=== PATIENT | female | born 1955 | race African-American/Black ===

== ENCOUNTER 2018-06-03 08:26 | Outpatient (CLI) | payer OTHER ==
--- NOTE | 2018-06-08 14:59 | MMO ---
MAMMOGRAM DIGITAL SCREENING BILATERAL: DATE: 06-08-18 HISTORY: 62-year-old female for routine bilateral screening mammogram. COMPARISON: 06-03-17, 03-05-16, 03-23-14 TECHNIQUE: Digital mammographic views. Computer-aided detection (CAD) utilized. FINDINGS: There are scattered areas of fibroglandular density. There is no evidence of suspicious mass, suspicious calcifications, or architectural distortion. The re is no significant interval change since the prior mammogram. IMPRESSION: 1) BIRADS 1- Negative. 2) Recommendation: routine bilateral annual screening mammogram (unless the patient develops suspicio us clinical findings that would warrant earlier imaging follow up). randy POS: MICHAEL
== END 2018-06-03 08:27 | disposition home or self-care (01) ==
LOC: SCSMAMMO 08:26
DX: Z12.31 Encounter for screening mammogram for malignant neoplasm of breast (principal)
CPT/HCPCS: 77067

== ENCOUNTER 2020-04-13 19:30 | Emergency (ER) | payer BC ==
[2020-04-13] MEDS ORDERED: cefTRIAXone\\ROCEPHIN 2 GM VIAL ONE (20:15)
[2020-04-13 20:16] LABS: Bacteria/HPF 1+ HPF (None Seen); Bilirubin Negative (Negative); Blood, Urine 2+ (Negative); Glucose, Urine (Dipstick) Greater than 1000 mg/dL (Negative); Leukocyte 500 Leu/uL (Negative); Nitrite Negative (Negative); Protein, Urine (Dipstick) 200 mg/dL (Neg-Trace); RBC/HPF 21-50 HPF (0-3); Squamous Epithelial None Seen HPF (0-3); Urobilinogen Normal mg/dL (Less than 2); WBC/HPF 0-3 HPF (0-3)
[2020-04-13] MEDS ORDERED: cefTRIAXone\\ROCEPHIN 1 GM VIAL ONE (20:16)
[2020-04-13 20:17] LABS: Clarity Hazy (Clear)
[2020-04-13 20:23] LABS: #Basophils 0.1 thou/uL (0.0-0.2); #Eosinphils 0.1 thou/uL (0.0-0.7); #Lymphocytes 2.3 thou/uL (1.20-3.40); #Monocytes 0.5 thou/uL (0.11-0.59); #Neutrophils 6.5 thou/uL (1.40-6.50); %Basophils 0.6 % (0.0-1.0); %Eosinophils 1.5 % (0.0-10.0); %Neutrophils 68.9 % (42.0-75.0); Hemoglobin 13.6 g/dL (12.0-16.0); Mean Corpuscular HGB CONC 32.3 g/dL (32.0-36.0); Mean Corpuscular Hemoglobin 27.9 pg (27.0-31.0); Mean Corpuscular Volume 86.3 fL (78.0-98.0); Mean Platelet Volume 9.1 fL (7.4-10.4); Platelet Count 193 thou/uL (130-400); RBC Distribution Width 13.2 % (11.5-14.5); Red Blood Cell (RBC) Count 4.88 mill/uL (4.20-5.40); White Blood Cell (WBC) Count 9.5 thou/uL (4.8-10.8)
[2020-04-13 20:45] LABS: ALT (SGPT) 77 U/L (8-55); AST (SGOT) 68 U/L (5-34); Albumin 4.9 g/dL (3.4-4.8); Alkaline Phosphatase 148 U/L (40-110); Anion Gap 16 mmol/L (10-20); BUN (Urea Nitrogen) 15 mg/dL (9.8-20.1); Bilirubin, Total 0.3 mg/dL (0.2-1.2); Calc. Creatinine Clearance 0 mL/min (70-130); Calcium 9.6 mg/dL (7.8-10.44); Carbon Dioxide 25 mmol/L (23-31); Chloride 99 mmol/L (98-107); Estimated GFR-MDRD 46; Globulin 3.4 g/dL (2.4-3.5); Glucose 148 mg/dL (80-115); Potassium 3.4 mmol/L (3.5-5.1); Protein, Total 8.3 g/dL (6.0-8.3); Sodium 137 mmol/L (136-145)
--- NOTE | 2020-04-13 21:20 | CT ---
CT ABDOMEN AND PELVIS: 04/13/20 PROVIDED CLINICAL HISTORY: Hematuria. FINDINGS: no comparisons. There is a sub 6 mm noncalcified nodule involving the left lower lobe. There is a mixed density mass including fat density at the superior pole of the left kidney measuring about 3.2 cm compatible with angiomyolipoma. The solid abdominal organs are suboptimally evaluated in the absence of IV contrast material but demo nstrate an otherwise unremarkable unenhanced CT appearance. Changes of prior cholecystectomy. There is conspicuous urinary bladder wall thickening with surrounding fat stranding. There is no evid ence for bowel obstruction. No additional fat stranding, free fluid or free air apparent. There is no evidence for appendicitis. Sigmoid colonic diverticula are demonstrated. The osseous structures demonstrate no concerning lytic or blastic lesions. IMPRESSION: 1. Urinary bladder wall thickening with surrounding fat stranding, compatible with cystitis. 2. 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 Given the size, nonemergent urology consultation is recomme nded. POS: JARED
== END 2020-04-13 21:37 | disposition home or self-care (01) ==
LOC: ERS 19:30
DX: N30.01 Acute cystitis with hematuria (principal); D17.9 Benign lipomatous neoplasm, unspecified; E11.9 Type 2 diabetes mellitus without complications; I10 Essential (primary) hypertension; E78.00 Pure hypercholesterolemia, unspecified; Z79.899 Other long term (current) drug therapy
CPT/HCPCS: 74176; 80053; 81003; 81015; 85025; 96365; J0696

== ENCOUNTER 2020-11-07 08:57 | Outpatient (CLI) | payer MEDICARE, OTHER ==
--- NOTE | 2020-11-07 12:30 | MMO ---
Bilateral MAMMO Bilat Screen [facility]. CLINICAL HISTORY: Patient is 64 years old and is seen for screening. The patient has no family history of breast cancer. The patient has no personal history of cancer. VIEWS: The views performed were: bilateral craniocaudal with tomosynthesis and bilateral mediolateral oblique with tomosynthesis. FILMS COMPARED: The present examination has been compared to a prior imaging study performed at [facility] on 06/03/2018. This study has been interpreted with the assistance of computer-aided detection. MAMMOGRAM FINDINGS: The breasts are heterogeneously dense, which could obscure a lesion on mammography. There are no suspicious masses, suspicious calcifications, or new areas of architectural distortion. IMPRESSION: THERE IS NO MAMMOGRAPHIC EVIDENCE OF MALIGNANCY. A ROUTINE FOLLOW-UP MAMMOGRAM IN 1 YEAR IS RECOMMENDED. THE RESULTS OF THIS EXAM WERE SENT TO THE PATIENT. ACR BI-RADS Category 1 - Negative MAMMOGRAPHY NOTE: 1. A negative mammogram report should not delay a biopsy if a dominant of clinically suspicious mass is present. 2. Approximately 10% to 15% of breast cancers are not detected by mammography. 3. Adenosis and dense breasts may obscure an underlying neoplasm. Reported by: GIOVANNI ZHOU MD Electonically Signed: [id number]
== END 2020-11-07 08:58 | disposition home or self-care (01) ==
LOC: BICMAMMO 08:57
PROVIDERS: ATTEND Family Medicine
DX: Z12.31 Encounter for screening mammogram for malignant neoplasm of breast (principal)
CPT/HCPCS: 77063; 77067

== ENCOUNTER 2021-11-24 12:14 | Outpatient (CLI) | payer MEDICARE | END 2021-11-24 12:15 | disposition home or self-care (01) | LOC: BICMAMMO 12:14 | PROVIDERS: ATTEND Family Medicine | DX: Z12.31 Encounter for screening mammogram for malignant neoplasm of breast (principal) | CPT/HCPCS: 77063; 77067 ==

== ENCOUNTER 2023-02-15 10:31 | Outpatient (CLI) | payer MEDICARE | END 2023-02-15 10:32 | disposition home or self-care (01) | LOC: BICMAMMO 10:31 | PROVIDERS: ATTEND Family Medicine | DX: Z12.31 Encounter for screening mammogram for malignant neoplasm of breast (principal); Z13.820 Encounter for screening for osteoporosis; M85.80 Other specified disorders of bone density and structure, unspecified site | CPT/HCPCS: 77063; 77067; 77080 ==

== ENCOUNTER 2024-05-09 12:23 | Outpatient (CLI) | payer MEDICARE, OTHER | END 2024-05-09 12:24 | disposition home or self-care (01) | LOC: BICMAMMO 12:23 | PROVIDERS: ATTEND Family Medicine | DX: Z12.31 Encounter for screening mammogram for malignant neoplasm of breast (principal) | CPT/HCPCS: 77063; 77067 ==